=== PATIENT | male | born 1995 | race African-American/Black ===

== ENCOUNTER 2018-07-10 15:48 | Emergency (ER) | payer SELFPAY ==
[~2018-07-10] VITALS: Ht 182.9 cm; Wt 90.7 kg
--- NOTE | 2018-07-10 16:28 | NUR ---
pt was evaluated by dr Ramos. pt was d/c'd to home. d/c instructions givenm to the pt.
[2018-07-10 16:30] VITALS: BP 123/78
== END 2018-07-10 16:28 | disposition home or self-care (01) ==
LOC: ER 15:48
DX: S86.912A Strain of unspecified muscle(s) and tendon(s) at lower leg level, left leg, initial encounter (principal); X50.0XXA Overexertion from strenuous movement or load, initial encounter; Y93.89 Activity, other specified; Y92.89 Other specified places as the place of occurrence of the external cause; Y99.8 Other external cause status
CPT/HCPCS: A4663